=== PATIENT | male | born 1965 | race Caucasian/White ===

== ENCOUNTER 2021-08-09 15:31 | Emergency (ER) | payer OTHER, SELFPAY ==
[2021-08-09 15:33] VITALS: BP 110/75; PULSE 96; RESP 16; TEMP 36.8; O2SAT 100; BMI 22.9
[2021-08-09 15:59] VITALS: BP 110/75; PULSE 96; RESP 16; TEMP 36.8; O2SAT 100
[2021-08-09 16:07] LABS: Mucous, Urine 0 SEEN /hpf (<or=2+); Red Blood Cells-Urine 0 SEEN /hpf (0-5)
--- NOTE | 2021-08-09 16:08 | EX.ED.GUMALE ---
HPI History of Present Illness Chief Complaint: Complaint Informant: patient and spouse/S.O. Narrative Narrative: Patient presents with dysuria, mild bladder discomfort and fevers. This all started over the last 6 or 8 hours. He had a fever of 100.3 at home. He just felt a little bit achy. No cough or trouble breathing. No congestion. No nausea vomiting. He is urinating frequently. His urine has a slight odor to it and smith. He has no flank or back pain. Urination makes his symptoms a little worse nothing makes them better. He has history of a cystoscopy some years ago but there was a benign finding. He has never had UTIs before. He has no history of difficulty with urination or nighttime urination. No history of enlarged prostate. PFSH PFSH Home Medications NK 08/09/21 [History Last Taken Unknown] phenazopyridine [Pyridium] 200 mg PO TID #10 tab 08/09/21 [Rx Last Taken Unknown] sulfamethoxazole-trimethoprim [Bactrim DS] 1 tab PO BID 10 Days #20 tab 08/09/21 [Rx Last Taken Unknown] Allergy/AdvReac Type Severity Reaction Status Date / Time No Known Allergies Allergy Verified 08/09/21 15:32 Surgical History H/O hernia repair H/O rotator cuff surgery History of tonsillectomy Social History Smoking Status: Never smoker ROS ROS ED Constitutional Constitutional ED: Reports fever(s) ENT ENT ED: Denies rhinorrhea or sore throat Cardiovascular Cardiovascular: Denies chest pain or palpitations Respiratory/Chest Respiratory/Chest: Denies cough or sputum Gastrointestinal Gastrointestinal: Reports other Details: No pain in the abdomen but he does feel pressure over the bladder area. ; Denies abdominal pain, nausea or vomiting Genitourinary Genitourinary ED: Reports dysuria and urinary frequency; Denies hematuria Musculoskeletal Musculoskeletal: Reports myalgias; Denies back pain or neck pain Integumentary Denies rash Neurologic Neurologic: Denies headache(s) Endocrine Endocrinology: Denies polydipsia or polyuria Hematologic/Lymphatic Hematologic/Lymphatic: Denies easy bleeding or easy bruising Allergic/Immunologic Allergic/Immunologic ED: Denies urticaria EXAM Physical Exam Const Vital Signs: 08/09/21 15:33 08/09/21 15:59 Temperature 98.2 F 98.2 F Temperature Source Temporal Temporal Pulse Rate 96 96 Respiratory Rate 16 16 Blood Pressure 110/75 110/75 Blood Pressure Mean 86 86 Pulse Ox 100 100 Oxygen Delivery Method Room Air Room Air Positive well nourished and well developed General Appearance ED: well developed and NAD HEENT Reports moist mucous membranes Resp normal respiratory effort and clear to auscultation bilaterally Cardio regular rate and regular rhythm GI non-tender and non-distended GI Narrative: Patient's abdomen is very benign. When I press over the bladder he feels some pressure but there is no tenderness. There is no rebound or guarding. His bladder does not feel to be enlarged to me. Auscultation: normoactive bowel sounds Palpation: soft no CVA tenderness Narrative: No CVA tenderness on either side. No rashes Back/Spine no CVA tenderness Extremity normal to inspection Neuro oriented x3 Sensorium / Orientation: alert Psych mental status grossly normal Skin Rashes: no rashes MDM MDM MDM Narrative Medical decision making narrative: Urine is cloudy, positive nitrates, high leukocyte esterase, and 50-100 white cells. This is all strongly consistent with UTI. Bladder scan is only 13 cc. Patient's rechecked. He was sent from urgent care for possible appendicitis. But he has absolutely 0 tenderness in that area. He has symptoms of UTI and findings strongly consistent with UTI. I do not think this justifies further work-up with blood work or CAT scan at this point. The family agrees and the patient agrees. We did discuss reasons to return. Lab Data Attestation: I reviewed the patient's lab results. Labs: Laboratory Results - last 24 hr 08/09/21 16:00 Urine Color Yellow Urine Clarity Cloudy Urine pH 5.0 Ur Specific [place] 1.020 Urine Protein 100 H Urine Glucose (UA) Normal Urine Ketones 15 H Urine Occult Blood 250 H Urine Nitrite Positive H Urine Bilirubin Negative Urine Urobilinogen Normal Ur Leukocyte Esterase 500 H Urine RBC 0 SEEN Urine WBC 50-100 SEEN Ur Squamous Epith Cells 0-5 SEEN Urine Bacteria RARE Urine Mucus 0 SEEN Discharge Plan Triage Chief Complaint: Complaint ED Provider: Marcell Pope Dx/Rx/DC Orders Clinical Impression: Urinary tract infection in male Instructions: ED Bladder Infection, Male (Adult) Prescriptions: New phenazopyridine [Pyridium] 200 MG tablet 200 mg PO TID Qty: 10 RF: 0 sulfamethoxazole-trimethoprim [Bactrim DS] 800-160 mg tablet 1 tab PO BID 10 Days Qty: 20 RF: 0 No Action NK RF: 0 Primary Care Provider: Virginia Gaston Referrals: Virginia Gaston DO [Primary Care Provider] - 3-5 Days Disposition Disposition: Home, Self Care
[2021-08-09 16:14] LABS: Color, Urine Yellow (Yellow); Glucose, Dipstick Normal (Normal); Ketone-Dipstick 15 mg/dl (Negative); Leukocyte Esterase-Dipstick 500 /ul (Negative); Nitrite-Dipstick Positive (Negative); Occult Blood-Urine 250 /ul (Negative); Protein-Dipstick 100 mg/dl (Negative); Urine Bilirubin Dipstick Negative (Negative); Urine Clarity Cloudy (Clear); Urine Urobilinogen Normal (Normal)
[2021-08-09 16:32] LABS: Squamous Epithelial Cells - UA 0-5 SEEN /hpf (0-5); White Blood Cells 50-100 SEEN /hpf (0-5)
[2021-08-09 16:33] LABS: Bacteria RARE /hpf (None Seen)
[2021-08-09] MEDS: Smz/Tmp Ds Tablet 1 TABLET PO (16:55)
[2021-08-09] MEDS: Phenazopyridine 95 MG Tablet 190 MG PO (16:55)
[2021-08-09 16:57] VITALS: PULSE 88; RESP 16; O2SAT 97
== END 2021-08-09 16:58 | disposition home or self-care (01) ==
PROVIDERS: Emergency Provider Emergency Medicine; PCP Family Medicine
DX: N39.0 Urinary tract infection, site not specified (principal)
CPT/HCPCS: 81001; 87077; 87086; 87088; 87186; 99283

== ENCOUNTER 2021-12-01 14:29 | Emergency (ER) | payer OTHER, SELFPAY ==
[2021-12-01 14:29] VITALS: BP 130/86; PULSE 77; RESP 16; TEMP 36.3; O2SAT 100; BMI 23.8
--- NOTE | 2021-12-01 14:32 | EKG12_ITS ---
Test Reason : CP Blood Pressure : / mmHG Vent. Rate : 078 BPM Atrial Rate : 078 BPM P-R Int : 130 ms QRS Dur : 102 ms QT Int : 400 ms P-R-T Axes : 071 043 -07 degrees QTc Int : 456 ms Normal sinus rhythm T wave abnormality, consider inferior ischemia Abnormal ECG Confirmed by RADHA KIM, ERIC ([id number]), state editor GUIDO MOORE ([id number]) on 12/11/2021 7:57:18 AM Referred By: GINA/GM Confirmed By:ERIC GARCIA MD
--- NOTE | 2021-12-01 14:40 | NURSING ---
NO OLD EKGS
[2021-12-01 14:44] LABS: Absolute Lymphocyte Count 0.81 X10^3/uL (0.83-4.51); Absolute Neutrophil Count 5.4 X10^3/uL (2.0-7.7); Basophil# 0.02 X10^3/uL; Basophil% 0.3 % (0-1); Eosinophil# 0.01 X10^3/uL; Eosinophils% 0.2 % (0-5); Hematocrit 44.8 % (40-54); Hemoglobin 15.1 g/dL (13.0-16.5); Lymphocyte # 0.81 X10^3/ul (0.83-4.51); Lymphocyte % 12.3 % (19-41); Mean Corp Hgb Conc 33.7 g/dL (32-36); Mean Corpuscular Hgb 30.1 pg (27.0-32.0); Mean Corpuscular Volume 89.4 fL (80-94); Monocyte# 0.22 X10^3/uL; Monocyte% 3.3 % (0-10); NRBC Flagged by Analyzer 0 % (0-5); Neutrophil # 5.43 X10^3/uL (2.7-7.7); Neutrophil % 82.2 % (47-70); Platelet Count 289 K/mm3 (150-450); RBC Distribution Width CV 11.9 % (11.6-14.6); RBC Distribution Width SD 38.2 fl (35.1-43.9); Red Blood Count 5.01 M/mm3 (4.6-6.2); White Blood Count 6.6 K/mm3 (4.4-11.0)
[2021-12-01 15:00] LABS: Anion Gap 6 (5-15); BUN 17 mg/dL (7-18); BUN/Creat Ratio 17.3 RATIO (10-20); Calcium,Total 9.5 mg/dL (8.5-10.1); Chloride 104 mmol/L (98-107); Creatinine, Serum 0.98 mg/dL (0.70-1.30); EST Glomerular Filtration Rate 83 mL/min (>60); Est Glom Filt Rate - Afr Amer 101 mL/min (>60); Estimated Creatinine Clearance 85.87 ml/min; Glucose 99 mg/dL (74-106); Sodium Level 140 mmol/L (136-145); Troponin-I HS 6 pg/mL (3.0-78.0)
[2021-12-01 15:07] LABS: Prothrombin Time (Protime)PT. 12.3 SECONDS (11.7-14.9)
--- NOTE | 2021-12-01 15:40 | RAD_ITS ---
STUDY: X-RAY CHEST REASON FOR EXAM: Male, 55 years old. Chest pain TECHNIQUE: Single AP portable view of the chest. COMPARISON: None. FINDINGS: The lungs are clear and expanded. There is no demonstrated pleural abnormality. Normal size heart. Normal mediastinum and isela. Normal visualized pulmonary arteries. Normal visualized aortic arch and descending thoracic aorta. Normal visualized thoracic spine. Normal visualized ribs, clavicles, and shoulders. There is no demonstrated abnormality of the visualized soft tissue structures of the upper abdomen. RAD/Chest 1 View (Portable) IMPRESSION: Normal x-ray examination of the chest. Electronically Signed: Jose Enrique Swain MD at 15:55 EST , Service support ,
[2021-12-01 17:33] VITALS: BP 128/78; PULSE 59; RESP 16; O2SAT 99
[2021-12-01 17:34] VITALS: O2SAT 98
--- NOTE | 2021-12-01 18:35 | ED.VIS.CHEST ---
HPI History of Present Illness Chief Complaint: Chest Pain Informant: patient Narrative Narrative: Patient is a 55-year-old male with history of Covid diagnosis 2 weeks ago presenting with chest pain. Patient states he started having symptoms on November 15. He had a positive home test and then had a positive PCR test at [facility]. When he initially was sick he did have a couple episodes of syncope. His last one was a week ago. He notes for the past 4 days he has been having chest pain. It normally occurs in the afternoon and he will have pressure on his chest that radiates to his back. He become hot and sweaty. It will last for 5 to 7 minutes. And then will resolve. He denies any aggravating or alleviating factors. The last episode was around 11 AM today but it was more severe yesterday at 12:30 PM. He has had a mild associated headache but thinks he is a little dehydrated. His PCP did give him a course of Z-Stewart and prednisone. He has 2 days left of his prednisone taper. He denies any nausea vomiting or diarrhea. He denies any new fevers. He feels generally weak but denies any other acute complaints. Denies any history of DVT or PE. Notes he has had a stress test in the past that was normal. Denies any history of hypertension, hyperlipidemia or any other cardiac history. PFSH PFSH Home Medications NK 08/09/21 [History Last Taken Unknown] Allergy/AdvReac Type Severity Reaction Status Date / Time No Known Allergies Allergy Verified 08/09/21 15:32 Surgical History H/O hernia repair H/O rotator cuff surgery History of tonsillectomy Social History Smoking Status: Never smoker ROS ROS ED Constitutional Constitutional ED: Reports chills and sweats; Denies fever(s) Eyes Eyes: Denies change in vision ENT ENT ED: Denies ear pain, rhinorrhea or sore throat Cardiovascular Cardiovascular: Reports chest pain; Denies palpitations Respiratory/Chest Respiratory/Chest: Reports cough and dyspnea Gastrointestinal Gastrointestinal: Denies abdominal pain, diarrhea, nausea or vomiting Genitourinary Genitourinary ED: Denies dysuria or hematuria Musculoskeletal Musculoskeletal: Denies arthralgias Integumentary Denies rash Neurologic Neurologic: Reports weakness; Denies headache(s) Psychiatric Psychiatric: Denies anxiety or depression EXAM Physical Exam Const Vital Signs: 12/01/21 14:29 12/01/21 17:30 12/01/21 17:33 Temperature 97.4 F L Temperature Source Temporal Pulse Rate 77 59 L Respiratory Rate 16 16 Respiratory Effort Normal Non-Labored Blood Pressure 130/86 H 128/78 H Blood Pressure Mean 100 94 Pulse Ox 100 99 Oxygen Delivery Method Room Air Room Air 12/01/21 17:34 12/01/21 21:17 12/01/21 22:51 Temperature Temperature Source Pulse Rate 54 L 73 Respiratory Rate 15 16 Respiratory Effort Blood Pressure 131/77 H 141/69 H Blood Pressure Mean 95 Pulse Ox 98 97 96 Oxygen Delivery Method Room Air Room Air Positive well nourished and well developed General Appearance ED: well developed HEENT Reports TM's clear and moist mucous membranes normocephalic and atraumatic Tympanic Membrane ED: Yes TM's clear Eyes PERRL and EOMs intact bilaterally Neck supple and no JVD Chest Wall inspection of chest normal Resp normal respiratory effort and clear to auscultation bilaterally Effort and Inspection: respiratory distress Auscultation: Negative for wheezes or diminished lung sounds Cardio regular rate, regular rhythm and no murmurs GI normal to inspection, nondistended, normoactive bowel sounds and soft to palpation GI Narrative: 2+ DP pulses Extremity normal to inspection General Extremety ED: Negative for edema or tenderness General Extremity: Negative for edema Neuro oriented x3 Sensorium / Orientation: awake and alert Motor Exam: general weakness Psych mental status grossly normal Skin no rashes or lesions noted MDM MDM MDM Narrative Medical decision making narrative: Patient is evaluated for chest pain. Its been occurring for a couple days in a row the afternoon. He currently does not have any symptoms. He did recently have Covid 19 diagnosis. Patient peers nontoxic. His vital signs are normal. Cardiac work-up including troponin and EKG are normal. He does have an elevated D-dimer and a CTA is ordered. Patient has pain at the IV site during the CTA however no acute abnormalities are noted on the CT itself. He is given a bolus of IV fluids. He is discharged home with instructions to follow-up with his primary care doctor for outpatient cardiac evaluation. Patient questions if he could have a component of reflux/heartburn that is causing his pain. I did tell him it is possible and counseled that he should start taking a daily Pepcid to see if that helps. Patient is counseled return precautions. He verbalized agreement understand this plan. Discharged home in stable condition. Lab Data Attestation: I reviewed the patient's lab results. Labs: Laboratory Results - last 24 hr 12/01/21 12/01/21 12/01/21 14:35 14:35 14:35 WBC 6.6 RBC 5.01 Hgb 15.1 Hct 44.8 MCV 89.4 MCH 30.1 MCHC 33.7 RDW Std Deviation 38.2 RDW Coeff of Brennen 11.9 Plt Count 289 MPV 9.0 Immature Gran % (Auto) 1.700 H Neut % (Auto) 82.2 H Lymph % (Auto) 12.3 L [place] % (Auto) 3.3 Eos % (Auto) 0.2 Baso % (Auto) 0.3 Absolute Neuts (auto) 5.4 Absolute Lymphs (auto) 0.81 L Nucleated RBC % 0 PT 12.3 INR 1.0 D-Dimer Quant (PE/DVT) Sodium 140 Potassium 4.0 Chloride 104 Carbon Dioxide 30.0 Anion Gap 6 BUN 17 Creatinine 0.98 Estim Creat Clear Calc 85.87 Est GFR (MDRD) Af Amer 101 Est GFR (MDRD) Non-Af 83 BUN/Creatinine Ratio 17.3 Glucose 99 Calcium 9.5 Troponin I High Sens 6 12/01/21 18:25 WBC RBC Hgb Hct MCV MCH MCHC RDW Std Deviation RDW Coeff of Brennen Plt Count MPV Immature Gran % (Auto) Neut % (Auto) Lymph % (Auto) [place] % (Auto) Eos % (Auto) Baso % (Auto) Absolute Neuts (auto) Absolute Lymphs (auto) Nucleated RBC % PT INR D-Dimer Quant (PE/DVT) 0.76 H* Sodium Potassium Chloride Carbon Dioxide Anion Gap BUN Creatinine Estim Creat Clear Calc Est GFR (MDRD) Af Amer Est GFR (MDRD) Non-Af BUN/Creatinine Ratio Glucose Calcium Troponin I High Sens Radiography Chest X-Ray - ED: 1 View, Read by ED Physician, Read by Radiologist and No Acute Disease Diagnostic Testing: Clinical Impression(s) from Imaging Studies Chest X-Ray 12/01/21 15:40 IMPRESSION: Normal x-ray examination of the chest. Electronically Signed: Jose Enrique Swain MD at 15:55 EST , Service support , Chest CTA 12/01/21 19:20 IMPRESSION: Normal CTA chest examination, without a demonstrated pulmonary embolism or arterial dissection. Electronically Signed: Parker Jim DO at 21:07 EST Tel [phone], Service support , Rhythm Strip Rhythm Strip: Sinus Rhythm Rate: 78 Ectopy: None EKG Initial EKG: Attestation: I personally reviewed and interpreted this EKG as follows: Comments: Normal sinus rhythm the rate of 78 Normal axis Normal intervals Normal ST segments T wave inversions in 3 and aVF Discharge Plan Triage Chief Complaint: Chest Pain ED Provider: Lani Mtz Dx/Rx/DC Orders Clinical Impression: Chest pain, COVID-19 Instructions: Coronavirus Disease 2019 (COVID-19): Caring for Yourself or Others, ED Chest Pain, Uncertain Cause Prescriptions: No Action NK RF: 0 Primary Care Provider: Virginia Gaston Referrals: Virginia Gaston DO [Primary Care Provider] - Activity Restrictions/Additional Instructions: Because your chest pain is not clear today. Please follow-up with your primary care doctor. He might require repeat stress test. You can start taking daily Pepcid to see if this helps with your pain as this could be from your stomach/esophagus. At this time you do not have a blood clot in your lungs I think you are safe to go home. Disposition Disposition: Home, Self Care Discharge Date/Time: 12/01/21 22:52
[2021-12-01 19:14] LABS: D-Dimer Quantitative (DVT/PE) 0.76 FEU/ug/m (0.27-0.49)
--- NOTE | 2021-12-01 19:20 | CT_ITS ---
STUDY: CTA CHEST REASON FOR EXAM: Male, 55 years old. Chest pain. Elevated d-dimer. RADIATION DOSAGE (If Supplied By Facility): CTDIvol = ( 9.75 ) mGy, DLP = ( 359.386 ) mGycm TECHNIQUE: The examination was performed with the intravenous administration of IV 100mL Isovue-370. Post-processing of the angiographic images was performed, with multiplanar reformation and 3D reconstruction. Individualized dose optimization techniques were used for this CT. COMPARISON: None. FINDINGS: Normal enhancement of the main pulmonary artery and right and left pulmonary arteries. Normal enhancement of the bilateral peripheral pulmonary arteries. There is no demonstrated pulmonary embolism. Normal thoracic aorta and visualized great vessels. There is no demonstrated aortic dissection. Normal heart and pericardium. Nonspecific subcentimeter mediastinal lymphadenopathy. Normal hilar regions. Normal visualized trachea and bronchi. The lungs are well expanded. Normal pulmonary parenchyma. Normal pleura. Normal chest wall structures. Normal osseous structures. Small cyst in segment 2 of the liver. There is a left renal cyst. The abdomen is otherwise unremarkable. CT/CTA Chest W/WO Contrast IMPRESSION: Normal CTA chest examination, without a demonstrated pulmonary embolism or arterial dissection. Electronically Signed: Parker Jim DO at 21:07 EST Tel [phone], Service support ,
[2021-12-01 21:17] VITALS: BP 131/77; PULSE 54; RESP 15; O2SAT 97
[2021-12-01 22:51] VITALS: BP 141/69; PULSE 73; RESP 16; O2SAT 96
== END 2021-12-01 22:52 | disposition home or self-care (01) ==
PROVIDERS: Emergency Provider Emergency Medicine; PCP Family Medicine; Visit Provider Emergency Medicine
DX: U07.1 COVID-19 (principal)
CPT/HCPCS: 71045; 71275; 80048; 84484; 85025; 85379; 85610; 93005; 99285; J7030; Q9967; A4216

== ENCOUNTER 2023-10-20 19:15 | Emergency (ER) | payer OTHER, SELFPAY ==
[2023-10-20 19:16] VITALS: BP 152/86; PULSE 65; RESP 16; TEMP 36; O2SAT 100; BMI 25.0
--- NOTE | 2023-10-20 20:30 | EX.ED.UPPERE ---
HPI History of Present Illness Chief Complaint: Laceration Detail of Chief Complaint: Laceration to left index finger Informant: patient Narrative Narrative: Patient presents with laceration to left index finger that occurred this afternoon. 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 Patient states that he had his fianc?e washed it and dress it but she thought she saw something white in the wound so she advised him to get evaluated. Patient states that he went to urgent care and he was referred to the emergency department for definitive care. PFSH PFSH Home Medications cephalexin 500 mg capsule 500 mg PO Q6 #40 CAPSULES 10/20/23 [Rx Last Taken Unknown] Allergy/AdvReac Type Severity Reaction Status Date / Time No Known Allergies Allergy Verified 08/09/21 15:32 Surgical History H/O hernia repair H/O rotator cuff surgery History of tonsillectomy Social History Smoking Status: Never smoker ROS ROS ED Review of Systems ROS Unobtainable: other Constitutional Constitutional ED: Reports lethargy; Denies chills, fever(s), sweats or weight loss Eyes Eyes: Denies blurry vision, change in vision or diplopia ENT ENT ED: Denies rhinorrhea or sore throat Cardiovascular Cardiovascular: Denies chest pain, orthopnea or racing heartbeat Respiratory/Chest Respiratory/Chest: Denies cough, dyspnea, dyspnea on exertion, orthopnea or sputum Gastrointestinal Gastrointestinal: Denies abdominal pain, diarrhea, nausea or vomiting Genitourinary Genitourinary ED: Denies dysuria, hematuria or urinary frequency Musculoskeletal Musculoskeletal: Reports other Details: Laceration to left index finger ; Denies arthralgias, back pain, myalgias or neck pain Integumentary Denies abscess, Abrasions or rash Neurologic Neurologic: Denies headache(s) or weakness Psychiatric Psychiatric: Denies anxiety, depression or suicidal thoughts Endocrine Endocrinology: Denies polydipsia, polyphagia or polyuria Hematologic/Lymphatic Hematologic/Lymphatic: Denies easy bleeding, easy bruising or lymphadenopathy Allergic/Immunologic Allergic/Immunologic ED: Denies mouth swelling, tongue swelling or urticaria EXAM Physical Exam Const Vital Signs: 10/20/23 19:16 Temperature 96.8 F L Temperature Source Temporal Pulse Rate 65 Respiratory Rate 16 Blood Pressure 152/86 H Blood Pressure Mean 108 Pulse Ox 100 Oxygen Delivery Method Room Air Positive well nourished and well developed General Appearance ED: well developed and NAD HEENT Reports TM's clear and moist mucous membranes normocephalic and atraumatic; Negative for trauma or tenderness Tympanic Membrane ED: Yes TM's clear Eyes PERRL and EOMs intact bilaterally General Eye ED: Negative for pale conjunctiva or scleral icterus Neck no lymphadenopathy, supple and no JVD General: Negative for tenderness Chest Wall inspection of chest normal and palpation of chest normal Chest: Negative for tenderness Resp normal respiratory effort and clear to auscultation bilaterally Effort and Inspection: Negative for respiratory distress or pain with movement Auscultation: Negative for rhonchi, wheezes or diminished lung sounds Cardio regular rate, regular rhythm, S1 normal heart sound, S2 normal heart sound and no murmurs Peripheral Pulses: pulses 2+ throughout GI normal to inspection, nondistended, normoactive bowel sounds, soft to palpation, non-tender, non-distended and no masses Back/Spine no CVA tenderness and no thoracic nor lumbar tenderness Extremity Extremity Narrative: Left index finger-patient has a 2.5 cm flap-like laceration over the area of the PIP joint. He has normal range of motion flexion extension. He is neurovascular intact distally. General Extremety ED: Negative for edema General Extremity: Negative for edema Neuro oriented x3, CN's II-XII intact bilaterally, no sensory deficits noted and gait normal Sensorium / Orientation: awake, alert, oriented to person, oriented to place and oriented to time Motor Exam: strength 5/5 throughout and strength abnormal Psych mental status grossly normal Skin no rashes or lesions noted and no wounds MDM MDM MDM Narrative Medical decision making narrative: Presents with laceration to his left index finger. He was offered suture repair to which he agreed. Initially obtain a x-ray of the finger to evaluate for foreign body or bony injury and this did not show any evidence of fracture or foreign bodies within the wound. Patient Toller procedure well please see procedure note for details. Patient advised to have his sutures removed in 10 days. He is to return if increasing pain, redness, swelling, purulent drainage, or condition worsening way. Also of note during the suture repair patient did have a vasovagal episode that was short-lived and he responded once he was laid flat patient's sensorium normalized Procedures Lacerations Left index finger laceration: Length: 0.98 in Depth: Sub Q Shape: Linear Prep: Sterile Conditions Laceration repair: Digital block, Irrigated, Lidocaine, Skin sutures and Wound explored Irrigated (ml): 50 Number of Sutures/[place]: 3 Suture Information: Ethilon, Simple and 5-0 Comment: Evaluation of the wound does reveal that the laceration goes down to the extensor tendon but do not see any defect in the tendon itself. Patient has normal strength and extension against resistance. Discharge Plan Triage Chief Complaint: Laceration ED Provider: Osvaldo Galindo Dx/Rx/DC Orders Clinical Impression: Finger laceration Instructions: ED Laceration, Hand: All Closures Prescriptions: New cephalexin [cephalexin] 500 mg capsule 500 mg PO Q6 Qty: 40 0RF Primary Care Provider: Virginia Gaston Referrals: Virginia Gaston DO [Primary Care Provider] - 10 Day for suture removal Disposition Disposition: Home, Self Care
[2023-10-20] MEDS: Lidocaine 1% (20 ml mdv) 20 ML Vial 8 ML INFILT (20:41)
--- NOTE | 2023-10-20 20:42 | RAD_ITS ---
STUDY: X-RAY - LEFT HAND, ATTENTION SECOND FINGER REASON FOR EXAM: Male, 57 years old. LACERATION TO LEFT INDEX FINGER WHILE CUTTING METAL TECHNIQUE: 3 view(s) of the finger were obtained. COMPARISON: None. FINDINGS: Normal metacarpal head. Normal metacarpophalangeal joint. Normal proximal phalanx. Normal middle phalanx. Normal distal phalanx. Normal proximal interphalangeal joint. Normal distal interphalangeal joint. RAD/Finger(s) Min 2 Views IMPRESSION: No fracture or radiopaque foreign body. Electronically Signed: Darwin Guevara MD (Brooks) at 20:56 EST ,
[2023-10-20 22:21] VITALS: BP 126/81; PULSE 77; RESP 16; O2SAT 96
[2023-10-20] MEDS: Diphth,Pertuss(Acell),Tet Vac 0.5 ML Vial IM (22:39)
[2023-10-20] MEDS: Cephalexin 250 MG Capsule 500 MG PO (22:40)
== END 2023-10-20 23:02 | disposition home or self-care (01) ==
PROVIDERS: Emergency Provider Emergency Medicine; PCP Family Medicine; Visit Provider Emergency Medicine
DX: S61.211A Laceration without foreign body of left index finger without damage to nail, initial encounter (principal); R55 Syncope and collapse; W31.1XXA Contact with metalworking machines, initial encounter; Y93.89 Activity, other specified
CPT/HCPCS: 12001; 73140; 90715; 99283